=== PATIENT | male | born 1985 | race Caucasian/White ===

== ENCOUNTER → 2024-09-25 | Outpatient (CLI) | payer OTHER ==
--- NOTE | 2024-09-25 16:00 | HMCIMG ---
Exam Type: LUMBAR W OBLIQUES AND FLEX/EXT Clinical Information: Sacrococcygeal disorders,not elsewhere classified,Vertebrogenic low back pa Comparison: None Findings: Exam of the lumbosacral spine demonstrates no evidence of fracture, subluxation, or significant degenerative change. The alignment of the spine is normal. The disc spaces are intact. The facet joints are preserved without significant degenerative changes Lateral flexion and extension views demonstrate no abnormal motion. Bone mineralization is normal. Impression: Normal exam of the lumbosacral spine.
== END | disposition home or self-care (01) ==
LOC: RAH 13:43
PROVIDERS: ATTEND Physical Medicine & Rehabilitation
DX: M53.3 Sacrococcygeal disorders, not elsewhere classified (principal); M54.51 Vertebrogenic low back pain; M99.03 Segmental and somatic dysfunction of lumbar region
CPT/HCPCS: 72110